=== PATIENT | female | born 1975 | race Caucasian/White ===

== ENCOUNTER 2020-03-05 14:00 | Outpatient (RCR) | payer MEDICAID, SELFPAY | END 2020-03-05 23:59 | disposition home or self-care (01) | LOC: ANHAUDIO 14:00 | DX: Z46.1 Encounter for fitting and adjustment of hearing aid (principal) | CPT/HCPCS: 99199; V5160; V5261 ==

== ENCOUNTER 2020-09-23 11:35 | Outpatient (RCR) | payer MEDICAID, SELFPAY | END 2020-09-23 23:59 | disposition home or self-care (01) | LOC: ANHAUDIO 11:35 | DX: Z46.1 Encounter for fitting and adjustment of hearing aid (principal) | CPT/HCPCS: 99199 ==